=== PATIENT | female | born 1970 | race Caucasian/White ===

== ENCOUNTER 2023-06-07 22:24 | Emergency (ER) | payer SELFPAY ==
[2023-06-07] MEDS ORDERED: Orphenadrine Citrate 60 MG/2 ML VIAL ONE (23:21)
== END 2023-06-08 00:37 | disposition home or self-care (01) ==
LOC: ERS 22:24
DX: M62.830 Muscle spasm of back (principal); I10 Essential (primary) hypertension; E78.00 Pure hypercholesterolemia, unspecified
CPT/HCPCS: 93005; 96372; J2360